=== PATIENT | male | born 1965 | race American Indian/Alaskan Native ===

== ENCOUNTER 2018-05-25 11:11 | Emergency (ER) | payer BC ==
[2018-05-25] MEDS ORDERED: CATAPRES ONE (11:44)
[2018-05-25] MEDS ORDERED: CATAPRES PO ONE (11:51)
[2018-05-25 12:34] LABS: Basophils % (Auto) 0.4 % (0.0-1.8); Eosinophils # (Auto) 0.1 K/mm3 (0.0-0.4); Eosinophils % (Auto) 1.4 % (0.0-4.3); Hemoglobin 15.2 gm/dl (11.8-15.2); Lymphocytes # (Auto) 1.6 K/mm3 (1.2-5.4); Lymphocytes % (Auto) 25.3 % (13.4-35.0); Mean Corpuscular HGB Conc 33 % (32-34); Mean Corpuscular Hemoglobin 30 pg (28-32); Mean Corpuscular Volume 91 fl (84-94); Monocytes # (Auto) 0.8 K/mm3 (0.0-0.8); Monocytes % (Auto) 12.6 % (0.0-7.3); Platelet Count 146 K/mm3 (140-440); Red Blood Count 5.06 M/mm3 (3.65-5.03); Red Cell Distribution Width 12.7 % (13.2-15.2)
[2018-05-25 12:42] LABS: INR 0.96 (0.87-1.13)
[2018-05-25 12:43] LABS: Partial Thromboplastin Time 27.4 Sec. (24.2-36.6); Thrombin Time 17.9 Sec. (15.1-19.6)
[2018-05-25 12:53] LABS: BUN/Creatinine Ratio 16; Blood Urea Nitrogen 16 mg/dL (9-20); Calcium 8.9 mg/dL (8.4-10.2); Hemolysis Index 39
--- NOTE | 2018-05-25 13:42 | Cat Scan Report ---
CT HEAD WITHOUT CONTRAST: HISTORY: Vision changes to left eye, drooping of left eye. TECHNIQUE: Sequential 2.5mm CT images. COMPARISON: none. FINDINGS: Cerebral Parenchyma: Within normal limits. Cerebellum: Within normal limits. Brainstem: Within normal limits. Ventricles: Normal. Sella: Normal. Extra-axial spaces: Normal. Basal Cisterns: Normal. Intracranial Hemorrhage: None. Midline Shift: None. Calvarium: Normal. Sinuses: Normal. Mastoid Air Cells: Normal. Visualized Orbits: Normal. IMPRESSION: Cranial CT scan within normal limits.
--- NOTE | 2018-05-25 13:54 | Emergency Department Report ---
ED Eye Problem HPI - General Chief complaint: Eye Problems Stated complaint: EYE/MUSCLE TIGHTEN Time Seen by Provider: 05/25/18 13:42 Source: patient Mode of arrival: Ambulatory Limitations: No Limitations - History of Present Illness Initial comments: 52yo male with PMHx of HTN, came in complaining of bluriness of left eye, headache. Pt states that he ran out of his blood pressure medications and hasnt taken them in weeks. Pt denies n/v/cp/sob, Pt denies fever, chills. Pt is under no acute distress. NIH: 0 MD chief complaint: eye pain, vision change Onset/Timin -: Gradual, days(s) Onset Description: gradual Location: left eye Place: home If Injury: none Eye Symptoms: blurry vision Severity: mild Severity scale (0 -10): 2 If Pain, Quality: aching Consistency: intermittent Associated Symptoms: headache - Related Data Home Medications Medication Instructions Recorded Confirmed Last Taken No Known Home Medications [No 05/25/18 05/25/18 Unknown Reported Home Medications] Allergies Allergy/AdvReac Type Severity Reaction Status Date / Time shrimp Allergy Vomiting Verified 05/25/18 12:01 ED Review of Systems ROS: Stated complaint: EYE/MUSCLE TIGHTEN Other details as noted in HPI Constitutional: denies: chills, fever Eyes: denies: eye pain, eye discharge, vision change ENT: denies: ear pain, throat pain Respiratory: denies: cough, shortness of breath, wheezing Cardiovascular: denies: chest pain, palpitations Endocrine: no symptoms reported Gastrointestinal: denies: abdominal pain, nausea, diarrhea Genitourinary: denies: urgency, dysuria Musculoskeletal: denies: back pain, joint swelling, arthralgia Skin: denies: rash, lesions Neurological: headache. denies: weakness, paresthesias Psychiatric: denies: anxiety, depression Hematological/Lymphatic: denies: easy bleeding, easy bruising ED Past Medical Hx - Past Medical History Previous Medical History?: Yes Hx Hypertension: Yes - Surgical History Past Surgical History?: No - Social History Smoking Status: Current Every Day Smoker Substance Use Type: Alcohol - Medications Home Medications: Home Medications Medication Instructions Recorded Confirmed Last Taken Type No Known Home Medications [No 05/25/18 05/25/18 Unknown History Reported Home Medications] ED Physical Exam - General Limitations: No Limitations General appearance: alert, in no apparent distress - Head Head exam: Present: atraumatic, normocephalic - Eye Eye exam: Present: normal appearance - ENT ENT exam: Present: mucous membranes moist - Neck Neck exam: Present: normal inspection - Respiratory Respiratory exam: Present: normal lung sounds bilaterally. Absent: respiratory distress - Cardiovascular Cardiovascular Exam: Present: regular rate, normal rhythm. Absent: systolic murmur, diastolic murmur, rubs, gallop - GI/Abdominal GI/Abdominal exam: Present: soft, normal bowel sounds - Rectal Rectal exam: Present: deferred - Extremities Exam Extremities exam: Present: normal inspection - Back Exam Back exam: Present: normal inspection - Neurological Exam Neurological exam: Present: alert, oriented X3 - Psychiatric Psychiatric exam: Present: normal affect, normal mood - Skin Skin exam: Present: warm, dry, intact, normal color. Absent: rash ED Course Vital Signs 05/25/18 05/25/18 05/25/18 11:34 12:00 13:14 Temperature 98.5 F Pulse Rate 94 H 92 H Respiratory 18 Rate Blood Pressure 220/146 206/142 175/109 Blood Pressure [Right] O2 Sat by Pulse 97 Oximetry 05/25/18 05/25/18 05/25/18 13:15 13:30 13:46 Temperature Pulse Rate Respiratory Rate Blood Pressure 172/97 172/97 161/99 Blood Pressure [Right] O2 Sat by Pulse 97 97 97 Oximetry 05/25/18 05/25/18 05/25/18 14:00 14:15 14:24 Temperature 98.7 F Pulse Rate 78 Respiratory 16 Rate Blood Pressure 161/99 Blood Pressure 164/109 [Right] O2 Sat by Pulse 98 97 100 Oximetry 05/25/18 05/25/18 05/25/18 14:28 14:30 14:45 Temperature Pulse Rate Respiratory 16 Rate Blood Pressure 170/106 170/106 Blood Pressure [Right] O2 Sat by Pulse 95 95 Oximetry 05/25/18 05/25/18 05/25/18 15:00 15:03 15:15 Temperature Pulse Rate 82 Respiratory 18 Rate Blood Pressure 168/104 168/104 Blood Pressure 168/111 [Right] O2 Sat by Pulse 95 95 96 Oximetry 05/25/18 05/25/18 15:30 15:45 Temperature Pulse Rate Respiratory Rate Blood Pressure 163/109 163/109 Blood Pressure [Right] O2 Sat by Pulse 95 97 Oximetry 52yo male with PMhx of HTN came in complaining of blurry vision and that he ran out of his BP meds. pt states that he has had blurriness and had his eyes deviated. pts blood pressure came down with clonidine. Pt denies n/v/cp/sob. I had a long conversation with the pt and tried to get him admitted, but he wants to sign out and wants to leave, all risks including stroke, explained. Pt states that he takes lisinopril 10mg daily at home and would like to go home on that. I will give him his blood pressure meds for now for home and he will followup with PCP. Pt will sign out AMA and followup with PCP. ED Medical Decision Making - Lab Data Result diagrams: 05/25/18 12:08 05/25/18 12:08 Critical care attestation.: If time is entered above; I have spent that time in minutes in the direct care of this critically ill patient, excluding procedure time. ED Disposition Clinical Impression: Hypertension, Blurry vision, Left against medical advice Disposition: DC-07 LEFT AGAINST MED ADVICE Is pt being admited?: No Condition: Stable Instructions: Hypertension (ED) Referrals: PRIMARY CARE, [Primary Care Provider] - 3-5 Days PAIGE MARIE MD [Staff Physician] - 3-5 Days
[2018-05-25 15:53] VITALS: BP 163/109
== END 2018-05-25 17:08 | disposition left against medical advice (07) ==
LOC: EDBD → ED 11:11
DX: I10 Essential (primary) hypertension (principal); F17.200 Nicotine dependence, unspecified, uncomplicated; Z91.013 Allergy to seafood
CPT/HCPCS: 36415; 70450; 80048; 84484; 85025; 85610; 85670; 85730; 93005; 93010